=== PATIENT | male | born 1985 | race Caucasian/White ===

== ENCOUNTER 2017-01-04 18:43 | Inpatient (IN) | payer MEDICAID ==
[~2017-01-04] VITALS: Ht 162.6 cm; Wt 65.6 kg
[2017-01-04] MEDS ORDERED: BISACODYL 10 MG SUPP RECTAL PRN (19:00)
[2017-01-04] MEDS ORDERED: SENNOSIDES 8.6 MG TAB PO PRN (19:00)
[2017-01-04] MEDS ORDERED: NALOXONE HCL 0.4 MG/ML AMP IV PRN (19:00)
[2017-01-04] MEDS ORDERED: ONDANSETRON HCL 4 MG/2 ML VIAL IVP PRN (19:00)
[2017-01-04] MEDS ORDERED: LACTULOSE SYRUP 20 GM/30 ML CUP PO PRN (19:00)
[2017-01-04] MEDS ORDERED: ACETAMINOPHEN 325 MG TAB PO PRN (19:00)
[2017-01-04] MEDS ORDERED: MAGNESIUM HYDROXIDE SUSP 30 ML CUP PO PRN (19:00)
[2017-01-04 20:15] VITALS: BP 142/88; PULSE 66; RESP 18; TEMP 98.2; O2SAT 97
[2017-01-04] MEDS: DOCUSATE SODIUM 50 MG/SENNA 8.6 MG TAB PO SCH (21:00)
[2017-01-05] VITALS: BP 138/74; PULSE 62; RESP 18; TEMP 97.4; O2SAT 97
[2017-01-05 06:48] LABS: CHLORIDE 107 MEQ/L (98-107); POTASSIUM 3.9 MEQ/L (3.5-5.1); SODIUM (NA) 142 MEQ/L (136-145)
[2017-01-05 06:53] LABS: ANION GAP 10 MEQ/L (5-15); BICARBONATE 25.3 MEQ/L (21.0-32.0); BLOOD UREA NITROGEN 35 MG/DL (7-18)
[2017-01-05 06:56] LABS: ALT (GPT) 31 U/L (12-78); AST (GOT) 21 U/L (15-37); GLOMERULAR FILTRATION RATE 39 ML/MIN (>89)
[2017-01-05 06:57] LABS: TOTAL BILIRUBIN ADULT 1.2 MG/DL (0.2-1.0)
[2017-01-05 06:59] LABS: ALKALINE PHOSPHATASE 89 U/L (45-117); CREATINE KINASE 492 U/L (39-308)
[2017-01-05 07:17] LABS: CKMB 2.2 NG/ML (0.5-3.6)
[2017-01-05 08:00] VITALS: BP 125/82; PULSE 55; RESP 20; TEMP 98.6; O2SAT 99
[2017-01-05] MEDS: DOCUSATE SODIUM 50 MG/SENNA 8.6 MG TAB PO SCH (09:00)
[2017-01-05] MEDS: SODIUM CHLOR 0.45% 500 ML INJ 500 ML IV SCH ×2 (09:15→15:55)
--- NOTE | 2017-01-05 09:19 | PD.CONS ---
HPI Service Nephrology Consult Requested By Reason for Consult Acute kidney injury Primary Care Physician Non-Staff History of Present Illness Mr. Wu is a 31 year old gentleman on chronic methadone therapy. He apparently has had generalized body pain for about 2 weeks. Developed vomiting on Thursday, and it continued on Thursday. He had been taking Ibuprofen on and off , and took about 6 Ibuprofen the day before his hospitalization. No gross hematuria. Complains of abdominal pain. Complains of weakness. Review of Systems Constitutional: COMPLAINS OF: Fatigue, DENIES: Fever, Chills Cardiovascular: DENIES: Chest pain Gastrointestinal: COMPLAINS OF: Abdominal pain, DENIES: Black stools, Bloody stools Musculoskeletal: COMPLAINS OF: Muscle aches, DENIES: Joint pain Psychiatric: DENIES: Anxiety, Confusion Past Family Social History Allergies: Coded Allergies: No Known Allergies (Unverified , 01/04/17) Past Medical History Chronic methadone therapy at [facility]one clinic. Reported Medications Methadone. Active Ordered Medications Current Medications Medications (Trade) Dose Ordered Sig/Reid Route Start Time Stop Time Status Last Admin (Tylenol) 650 mg Q4H PRN PO 01/04/17 19:00 (Zofran Inj) 4 mg Q6H PRN IVP 01/04/17 19:00 (Narcan Inj) 0.4 mg UNSCH PRN IV 01/04/17 19:00 (Bhargavi-Colace) 1 tab BID PO 01/04/17 21:00 (Milk Of Magnesia Liq) 30 ml Q12H PRN PO 01/04/17 19:00 (Senokot) 17.2 mg Q12H PRN PO 01/04/17 19:00 (Dulcolax Supp) 10 mg DAILY PRN RECTAL 01/04/17 19:00 (Lactulose Liq) 30 ml DAILY PRN PO 01/04/17 19:00 (Pneumovax-23 Inj) 25 mcg ONCE ONCE IM 01/05/17 10:00 01/05/17 10:01 (Flu (Quadrivalent) Vaccine Inj) 0.5 ml ONCE ONCE IM 01/05/17 10:00 01/05/17 10:01 Family History reviewed, non contributory Social History . Smokes 1 ppd. No ETOH. Physical Exam Vital Signs Vital Signs Date Time Temp Pulse Resp B/P Pulse Ox O2 Delivery O2 Flow Rate FiO2 01/05/17 00:00 97.4 62 18 138/74 97 01/04/17 20:15 98.2 66 18 142/88 97 Physical Exam GENERAL: awake, alert. SKIN: Warm and dry. HEAD: Normocephalic. EYES: No scleral icterus. No injection or drainage. NECK: Supple, trachea midline. No JVD or lymphadenopathy. CARDIOVASCULAR: Regular rate and rhythm without murmurs, gallops, or rubs. RESPIRATORY: Breath sounds equal bilaterally. No accessory muscle use. GASTROINTESTINAL: Abdomen soft, non-tender, nondistended. MUSCULOSKELETAL: No cyanosis, or edema. BACK: Nontender without obvious deformity. No CVA tenderness. Laboratory Laboratory Tests Test 01/05/17 06:00 Sodium Level 142 Potassium Level 3.9 Chloride Level 107 Carbon Dioxide Level 25.3 Anion Gap 10 Blood Urea Nitrogen 35 Creatinine 2.00 Estimat Glomerular Filtration 39 Rate Random Glucose 99 Calcium Level 9.1 Total Bilirubin 1.2 Aspartate Amino Transf 21 (AST/SGOT) Alanine Aminotransferase 31 (ALT/SGPT) Alkaline Phosphatase 89 Total Creatine Kinase 492 Creatine Kinase MB 2.2 Creatine Kinase MB % 0.4 Total Protein 7.7 Albumin 3.9 Result Diagram: 01/05/17 0600 Assessment and Plan Problem List: (1) Acute kidney failure Plan: likely due to dehydration and use of NSAIDs. Appears to be improving. Obtain UA. Continue IVF. Mild elevation in CPK is noted, likely does not have renal involvement with rhabdomyolysis. Avoid nephrotoxic agents. Patient was counseled on avoid excessive use of NSAIDs. May repeat renal panel later today, can be discharged if renal function is stable. Thanks for the consult. Brayden Kidd MD Jan 05, 2017 09:19
[2017-01-05] MEDS ORDERED: PNEUMOCOCCAL POLYVALENT INJ 25 MCG/0.5 ML SYR IM ONE (10:00)
[2017-01-05] MEDS ORDERED: INFLUENZA VIRUS VACCINE (QUADRIVALENT) 0.5 ML SYR IM ONE (10:00)
[2017-01-05 12:00] VITALS: BP 120/83; PULSE 78; RESP 20; TEMP 98.6; O2SAT 100
[2017-01-05] MEDS ORDERED: METHADONE HCL 10 MG TAB PO ONE (12:15)
[2017-01-05] MEDS ORDERED: SODIUM CHLOR 0.9% 1000 ML INJ 1,000 ML IV ONE (13:00)
--- NOTE | 2017-01-05 13:11 | HHI.HP ---
[facility] Service [facility] Primary Care Physician Non-Staff Admission Diagnosis Diagnoses: Chief Complaint: nausea/vomiting Travel History International Travel<30 Days: No Contact w/Intl Traveler <30 Da: No Traveled to Known Affected Are: No History of Present Illness 31 male with HTN and nonadherence to bp meds complaining of Dizziness nausea and vomiting for 1 day. He war working all day in the heat without drinking water and became dizzy so he went to the ER. He was in [facility] and had Rhabdo. He was sent to the inpatient unit. Overnight he improved with IVF and is marvelously improved. Review of Systems Constitutional: COMPLAINS OF: Dizziness, DENIES: Diaphoretic episodes, Fatigue , Fever, Weight gain, Weight loss, Chills, Change in appetite, Night Sweats Endocrine: DENIES: Heat/cold intolerance, Polydipsia, Polyuria, Polyphagia Eyes: DENIES: Blurred vision, Diplopia, Eye inflammation, Eye pain, Vision loss , Photosensitivity, Double Vision Ears, nose, mouth, throat: DENIES: Tinnitus, Hearing loss, Vertigo, Nasal discharge, Oral lesions, Throat pain, Hoarseness, Ear Pain, Running Nose, Epistaxis, Sinus Pain, Toothache, Odynophagia Respiratory: DENIES: Apneas, Cough, Snoring, Wheezing, Hemoptysis, Sputum production, Shortness of breath Cardiovascular: DENIES: Chest pain, Palpitations, Syncope, Dyspnea on Exertion , PND, Lower Extremity Edema, Orthopnea, Claudication Gastrointestinal: DENIES: Abdominal pain, Black stools, Bloody stools, Constipation, Diarrhea, Nausea, Vomiting, Difficulty Swallowing, Anorexia Genitourinary: DENIES: Sexual dysfunction, Urinary frequency, Urinary incontinence, Urgency, Hematuria, Dysuria, Nocturia, Penile Discharge, Testicular Pain, Testicular Swelling Musculoskeletal: DENIES: Joint pain, Muscle aches, Stiffness, Joint Swelling, Back pain, Neck pain Integumentary: DENIES: Abnormal pigmentation, Nail changes, Pruritus, Rash Immunologic/allergic: DENIES: Eczema, Urticaria Neurologic: DENIES: Abnormal gait, Headache, Localized weakness, Paresthesias, Seizures, Speech Problems, Tremor, Poor Balance Psychiatric: DENIES: Anxiety, Confusion, Mood changes, Depression, Hallucinations, Agitation, Suicidal Ideation, Homicidal Ideation, Delusions Past Family Social History Past Medical History heroin de-pendence HTN Past Surgical History denies Reported Medications none Allergies: Coded Allergies: No Known Allergies (Unverified , 01/04/17) Active Ordered Medications reviewed in the EMR Family History HTN Social History Heroin dependence Physical Exam Vital Signs Vital Signs Date Time Temp Pulse Resp B/P Pulse Ox O2 Delivery O2 Flow Rate FiO2 01/05/17 10:31 18 01/05/17 08:00 98.6 55 20 125/82 99 01/05/17 00:00 97.4 62 18 138/74 97 01/04/17 20:15 98.2 66 18 142/88 97 Physical Exam GENERAL: This is a well-nourished, well-developed patient, in no apparent distress. SKIN: No rashes, ecchymoses or lesions. Cool and dry. HEAD: Atraumatic. Normocephalic. No temporal or scalp tenderness. EYES: Pupils equal round and reactive. Extraocular motions intact. No scleral icterus. No injection or drainage. ENT: Nose without bleeding, purulent drainage or septal hematoma. Throat without erythema, tonsillar hypertrophy or exudate. Uvula midline. Airway patent. NECK: Trachea midline. No JVD or lymphadenopathy. Supple, nontender, no meningeal signs. CARDIOVASCULAR: Regular rate and rhythm without murmurs, gallops, or rubs. RESPIRATORY: Clear to auscultation. Breath sounds equal bilaterally. No wheezes , rales, or rhonchi. GASTROINTESTINAL: Abdomen soft, non-tender, nondistended. No hepato-splenomegaly , or palpable masses. No guarding. MUSCULOSKELETAL: Extremities without clubbing, cyanosis, or edema. No joint tenderness, effusion, or edema noted. No calf tenderness. Negative Homans sign bilaterally. NEUROLOGICAL: Awake and alert. Cranial nerves II through XII intact. Motor and sensory grossly within normal limits. Five out of 5 muscle strength in all muscle groups. Normal speech. Laboratory Laboratory Tests Test 01/05/17 06:00 Sodium Level 142 Potassium Level 3.9 Chloride Level 107 Carbon Dioxide Level 25.3 Anion Gap 10 Blood Urea Nitrogen 35 Creatinine 2.00 Estimat Glomerular Filtration 39 Rate Random Glucose 99 Calcium Level 9.1 Total Bilirubin 1.2 Aspartate Amino Transf 21 (AST/SGOT) Alanine Aminotransferase 31 (ALT/SGPT) Alkaline Phosphatase 89 Total Creatine Kinase 492 Creatine Kinase MB 2.2 Creatine Kinase MB % 0.4 Total Protein 7.7 Albumin 3.9 Result Diagram: 01/05/17 0600 Imaging 01/03 ct abd/pelvis wnl as per my review Assessment and Plan Problem List: (1) Acute kidney failure ICD Code: N17.9 Status: Acute Plan: improved with IVF (2) Rhabdomyolysis ICD Code: M62.82 Status: Acute Plan: improved cont ivf (3) Methadone dependence ICD Code: F11.20 Status: Acute Plan: resume methadone Assessment and Plan likely rhabdomyolysis due too dehydration Resolving DC Home diet regular activity as tolerated Code Status full code Discussed Condition With patient, medical tech Spouse Physician Certification 2 Midnight Certification Type: Admission for Inpatient Services Order for Inpatient Services The services are ordered in accordance with Medicare regulations or non- Medicare payer requirements, as applicable. In the case of services not specified as inpatient-only, they are appropriately provided as inpatient services in accordance with the 2-midnight benchmark. Estimated LOS (days): 2 2 days is the estimated time the patient will need to remain in the hospital, assuming treatment plan goals are met and no additional complications. Post-Hospital Plan: Home María Elena Babb MD Jan 05, 2017 13:11
[2017-01-05 16:00] VITALS: BP 118/90; PULSE 50; RESP 20; TEMP 98.5; O2SAT 100
[2017-01-05 16:09] LABS: BICARBONATE 27.1 MEQ/L (21.0-32.0)
--- NOTE | 2017-01-05 16:38 | HHI.DCPOC ---
Discharge Care Plan Diagnosis: (1) Methadone dependence (2) Rhabdomyolysis (3) Acute kidney failure Goals to Promote Your Health * To prevent worsening of your condition and complications * To maintain your health at the optimal level Directions to Meet Your Goals Take your medications as prescribed Follow your dietary instruction Follow activity as directed Keep your appointments as scheduled Take your immunizations and boosters as scheduled If your symptoms worsen call your PCP, if no PCP go to Urgent Care Center or Emergency Room Smoking is Dangerous to Your Health. Avoid second hand smoke Call the 24-hour hour crisis hotline for domestic abuse at María Elena Babb MD Jan 05, 2017 16:38
== END 2017-01-05 17:37 | disposition home or self-care (01) | DRG 683 ==
LOC: PHEDDLT 18:43 → PH3A 19:15
PROVIDERS: ADMIT Hospitalist; ATTEND Hospitalist
DX: N17.9 Acute kidney failure, unspecified (principal); M62.82 Rhabdomyolysis; F11.20 Opioid dependence, uncomplicated; E86.0 Dehydration; I10 Essential (primary) hypertension; F17.210 Nicotine dependence, cigarettes, uncomplicated; Z79.1 Long term (current) use of non-steroidal anti-inflammatories (NSAID)
CPT/HCPCS: 74177; 80048; 80053; 80307; 81001; 82550; 82552; 83690; 85007; 85027; 87086; 99281; J0696; J2270; J2405; J7030; Q9967